=== PATIENT | male | born 1940 | race Caucasian/White ===

== ENCOUNTER → 2023-08-03 10:24 | Outpatient (REF) | payer MEDICARE, SELFPAY | LOC: RCS 10:24 | PROVIDERS: ATTENDING PHYSICIAN Student in an Organized Health Care Education/Training Program; FAMILY PHYSICIAN Internal Medicine | DX: Z86.73 Personal history of transient ischemic attack (TIA), and cerebral infarction without residual deficits (principal) | CPT/HCPCS: 93225; 93226 ==

== ENCOUNTER → 2023-11-02 12:44 | Outpatient (REF) | payer MEDICARE, SELFPAY ==
[2023-11-02 17:13] LABS: ALT (SGPT) 27 U/L (0-50); AST (SGOT) 25 U/L (17-59); Alkaline Phosphatase 72 U/L (38-126); Blood Urea Nitrogen 16 mg/dl (9-20); Calcium 10.3 mg/dl (8.4-10.2); Carbon Dioxide 27 mmol/L (22-30); Chloride 104 mmol/L (98-107); Glucose 106 mg/dl (70-99); HDL Cholesterol 55 mg/dl; LDL Cholesterol, Calculated 41 mg/dl; Potassium 4.7 mmol/L (3.5-5.1); Sodium 139 mmol/L (135-145); Total Bilirubin 0.8 mg/dl (0.2-1.3); Total Cholesterol 116 mg/dl (50-199); Total Protein 6.7 g/dl (6.3-8.2); Triglyceride 104 mg/dl (10-149); Very Low Density Lipoprotein 20 mg/dl (0-30); eGFR 53.84
[2023-11-02 17:28] LABS: Microalbumin, Random Urine 13.7 mg/dl (0.6-1.7); Microalbumin/creatinine Ratio 127.4 mg/g
[2023-11-03 13:14] LABS: Glycohemoglobin (HgbA1c) 6.8 % (4.0-5.6)
== END ==
LOC: HWLAB 12:44
PROVIDERS: ATTENDING PHYSICIAN Internal Medicine
DX: E11.9 Type 2 diabetes mellitus without complications (principal); E78.5 Hyperlipidemia, unspecified
CPT/HCPCS: 36415; 80053; 80061; 82043; 82570; 83036

== ENCOUNTER 2023-11-30 15:01 | Inpatient (IN) | payer MEDICARE, SELFPAY ==
[2023-11-28] VITALS (10 sets, daily range): BP systolic 135–184; BP diastolic 65–105; BMI 26.8; BMI 26.4
[2023-11-28 16:52] LABS: % Basophils 0.4 % (0-2); % Eosinophils 0.3 % (0-6); % Immature Granulocytes 0.4 % (0-0.5); % Lymphocytes 6.6 % (20.5-51.1); % Monocytes 6.1 % (1.7-9.3); % Neutrophils 86.2 % (42.2-75.2); Absolute Basophils 0.1 10^3/uL (0-0.2); Absolute Immature Granulocytes 0.1 10^3/uL (0-0.05); Absolute Lymphocytes 0.8 10^3/uL (1.2-3.4); Absolute Monocytes 0.8 10^3/uL (0.1-0.6); Absolute Neutrophils 10.9 10^3/uL (1.4-6.5); Hematocrit 42.4 % (39.0-52.0); Hemoglobin 13.8 g/dL (13.0-18.0); Mean Corp Hgb Conc. 32.5 g/dL (33.0-37.0); Mean Corpuscular Hgb 31.5 pg (27.0-31.0); Mean Corpuscular Volume 96.8 fL (80.0-94.0); Mean Platelet Volume 11.4 fL (7.4-10.4); Nucleated Red Blood Cells % 0 % (-); Platelet Count 151 10^3/uL (130-400); Red Blood Cell Count 4.38 10^6/uL (4.70-6.10); Red Cell Dist. Width 12.8 % (11.5-14.5); White Blood Cell Count 12.7 10^3/uL (4.8-10.8)
[2023-11-28 17:05] LABS: ALT (SGPT) 22 U/L (0-50); AST (SGOT) 21 U/L (17-59); Albumin 4.2 g/dl (3.5-5.0); Alkaline Phosphatase 77 U/L (38-126); Blood Urea Nitrogen 17 mg/dl (9-20); Calcium 10.3 mg/dl (8.4-10.2); Carbon Dioxide 27 mmol/L (22-30); Chloride 105 mmol/L (98-107); Glucose 190 mg/dl (70-99); Potassium 5.3 mmol/L (3.5-5.1); Sodium 137 mmol/L (135-145); Total Bilirubin 1.3 mg/dl (0.2-1.3); Total Protein 6.8 g/dl (6.3-8.2); eGFR 53.84
--- NOTE | 2023-11-28 17:22 | ED.GENMED ---
History of Present Illness
General
Chief Complaint: Dizziness
Time Seen by Provider: 11/28/23 17:36
History of Present Illness
History of Present Illness:
83-year-old male with history of CAD status post CABG and stenting, hypertension, hyperlipidemia presenting to the emergency department after a syncopal episode. Patient reports this morning, he went to go get the mail, has a vague memory of the
event, however reports that he started to feel dizzy and passed out. To get himself up and got onto the couch. He has no recollection for the next 4 hours. His found him on the couch, called the neighbor because he seemed very quiet, not
like himself. Patient now reports that he is feeling generally weak, however denies focal sensory deficits to his extremities. He denies headache or visual changes. He denies chest pain or difficulty breathing. He denies ever having an episode
like this in the past. He did not eat breakfast this morning, however did eat dinner last night and was in his usual state of health last evening. He denies abdominal pain or GI symptoms. He denies additional acute medical complaints
Past History
Past History
ED Past Medical History: CAD and Valvular disease
ED Past Surgical History: Cardiac
Social History
Tobacco: Non-smoker
Alcohol: Occasional
Drug: None
Personal:
Living: with family
Employment: Retired
Family History
Family History: Other (Noncontributory)
Phy Exam
Physical Exam
Physical Exam:
GENERAL: Alert , in no apparent distress
EYE: pupils equal and reactive
HEAD: Abrasion to the chin with small laceration to the inside of upper lip
NECK: Supple, no significant adenopathy.
ENT: o/p clr, mmm.
CARDIAC: Regular rate and rhythm .
LUNGS: Clear breath sounds bilaterally, no acute respiratory distress, no wheezes/rales/rhonchi
ABDOMEN: Soft, without focal tenderness, no r/g, no cvat
NEUROLOGICAL: Alert and oriented, no focal neuro deficits
SKIN: Warm and dry, skin intact.
MUSCULOSKELETAL: No edema, well perfused. Abrasion to the right knee and right elbow with range of motion and
PSYCH: Normal and appropriate interaction.
Course
Orders/Labs/Results
Orders:
Orders
11/28/23 16:23
Electrocardiogram (*1) Urgent
Reason for Study: Vertigo / Dizzy
Head wo Contrast CT [CT Head W/o Iv Contrast] Urgent
Comment:
Reason For Exam: fall with head strike
EKG- Treatment ONCE
11/28/23 16:30
Complete Blood Count/With Diff Urgent
Comprehensive Metabolic Panel Urgent
11/28/23 16:58
ECG [Electrocardiogram (*1)] Urgent
Reason for Study: Vertigo / Dizzy
EKG- Treatment ONCE
11/28/23 17:25
Troponin I Urgent
11/28/23 18:03
CT Cervical Spine W/o Iv Contr Urgent
Reason For Exam: fall
11/28/23 18:04
CR Chest Single View Urgent
Reason For Exam: syncope
Abnormal Lab Results
11/28/23
16:30
WBC 12.7 H 10^3/uL
(4.8-10.8)
RBC 4.38 L 10^6/uL
(4.70-6.10)
MCV 96.8 H fL
(80.0-94.0)
MCH 31.5 H pg
(27.0-31.0)
MCHC 32.5 L g/dL
(33.0-37.0)
MPV 11.4 H fL
(7.4-10.4)
Abs Immat Gran (auto) 0.1 H 10^3/uL
(0-0.05)
Absolute Neuts (auto) 10.9 H 10^3/uL
(1.4-6.5)
Absolute Lymphs (auto) 0.8 L 10^3/uL
(1.2-3.4)
Absolute Monos (auto) 0.8 H 10^3/uL
(0.1-0.6)
Neutrophils % 86.2 H %
(42.2-75.2)
Lymphocytes % 6.6 L %
(20.5-51.1)
Potassium 5.3 H mmol/L
(3.5-5.1)
Glucose 190 H mg/dl
(70-99)
Calcium 10.3 H mg/dl
(8.4-10.2)
11/28/23 16:30
11/28/23 16:30
Vital Signs
Initial and Last Documented VS:
Initial Vital Signs
Temp Pulse Resp BP Pulse Ox
98.5 F 75 18 159/82 99
11/28/23 16:19 11/28/23 16:19 11/28/23 16:19 11/28/23 16:19 11/28/23 16:19
Last Documented Vital Signs
Temp Pulse Resp BP Pulse Ox
98.5 F 63 20 168/65 96
11/28/23 16:19 11/28/23 17:30 11/28/23 17:30 11/28/23 17:15 11/28/23 17:30
MDM/Problems Addressed
MDM/Problems Addressed:
83-year-old male with history of CAD status post CABG presenting after a syncopal episode with volume loss. Vital signs are significant for hypertension
On exam, patient is well-appearing, awake, alert. There are signs of head trauma, otherwise no focal neurologic deficits. Concerning story patient syncopal episode. He does note some possible dizziness prior to episode, did not eat breakfast this
morning, possible vasovagal quality. Given cardiac history, EKG obtained, nonischemic, no arrhythmia. Unclear etiology of patient's memory issue, with no recollection for the last 4 hours preceding hospital visit. No focal neurologic deficits,
plan for CT brain imaging. Minimal tenderness to the cervical spine. Given unclear details of fall, will check cervical spine imaging. Plan for laboratory analysis and electrolyte panel. No significant signs of additional trauma to
extremities/chest/abdomen/pelvis
19:40 -patient's labs relatively unremarkable. CT brain without acute intracranial abnormality. CT cervical spine shows multilevel disc abnormalities with mention of moderate cord compression. Patient without any focal neurologic deficits or
concern for surgical emergency. Patient notes that he has had neck pain ongoing for months. No midline tenderness without concern for acute traumatic injury. Again feel patient warrants admission for cardiac monitoring and cardiac consultation
for sudden syncopal episode with following amnesia, possible neurology consultation as well.
*EKG
Interpreted by ED Provider?: Yes
EKG Intrepretation Date: 11/28/23
EKG Intrepretation Time: 19:09
Interpretation: normal
Comparison EKG: no changes (04/08/19)
Heart Rate: 64
Rate: normal
Rhythm: sinus
Wallace: normal axis
Interval: other (WA 228)
QRS Pattern: normal QRS
Ischemia: no ischemia
*Critical Care Note
Total Time (30-74mins, 75-104mins- exclusive of procedures): Not Applicable
ED Attending Note
-
Portions of this chart may have been created with voice recognition software.� Occasional wrong word or��sound alike� substitutions may have occurred due to the inherent limitations of voice recognition software.
Discharge Plan
Departure
Prescriptions:
No Action
atorvastatin 10 MG tablet
10 mg PO QPM
Fish Oil 1 CAP capsule
1 cap PO DAILY
losartan 50 MG tablet
50 mg PO DAILY
metformin 500 mg Tablet
500 mg PO DAILY
Metamucil Packet
1 packet PO BID
ascorbic acid (vitamin C) [Vitamin C] 500 mg Tablet
500 mg PO DAILY
metformin 1,000 mg Tablet
1,000 mg PO QPM
metoprolol succinate 25 mg Tablet Extended Release 24 Hr
25 mg PO DAILY
magnesium oxide 250 mg magnesium Tablet
250 mg PO DAILY
cholecalciferol (vitamin D3) [Vitamin D3] 50 mcg (2,000 unit) Capsule
50 mcg PO DAILY
vitamin B complex [B Complete] Tablet
1 tab PO DAILY
Referrals:
Dalia Denny MD [Family Provider] -
Interventions
Interventions:
*Risk Screen - Suicide Last Done: 11/28/23 16:21
*General Assessment Last Done: 11/28/23 16:21
*Neglect/Abuse Screening Last Done: 11/28/23 16:21
ED- Fall Risk Assessment Last Done: 11/28/23 17:30
ED- Cardiac Assessment Last Done: 11/28/23 17:30
ED-Musculoskeletal Assessment Last Done: 11/28/23 17:30
ED- Neurological Assessment Last Done: 11/28/23 17:30
ED-Skin Assessment Last Done: 11/28/23 17:30
Discharge Date and Time
Print Language: LAO
[2023-11-28 17:59] LABS: Troponin I < 0.012 ng/ml
--- NOTE | 2023-11-28 21:16 | HPS.HSE ---
Family Physician
-
Family Physician: Dalia Denny
Chief Complaint
-
Fall / Syncope
History of Present Illness
Patient is an 83y M with PMH significant for ASCVD, AVR and DM-II who presents to ED complaining of fall / syncope at home. Patient admits that his recall of the days events is unclear. He states that he was walking out to get the mail this AM
around 10 AM. He states that he 'turned around too fast' and he fell. He states that he did feel 'dizzy' prior to the fall. He is not sure whether or not he lost consciousness. He was able - with some difficulty - to get back into the house. He
fell asleep on the couch until his came downstairs to find him some time later. A neighbor was called for assistance and patient was brought to the ED for further evaluation and treatment.
He complains of some facial discomfort, R elbow discomfort and L hand discomfort following his fall.
He denies any chest pain, dyspnea, N/V, etc.
He denies any recent illness, changes in medications, etc.
Note: patient had a basal cell cancer excised from his R forehead about 5 days ago.
Medical History
Past Medical History
Past Medical History: Reports Other
Additional Past Medical History:
ASCVD
Hypertension
Aortic Stenosis
Non-Melanoma Skin Cancer
Prostate Cancer
DM-II
Post-Procedural A-Fib
Past Surgical History: Reports Other
Additional Past Surgical History:
PTCA with Stent
CABG x 3
Bovine AVR
TURP
Skin Cancer Excisions
Social History
Tobacco: Former Smoker (Quit smoking in 1989. Approx 30 pack years total use.)
Alcohol: Occasional (Very rare.)
Drug: None
Family History
Family History: Not pertinent
Allergies / Home Medications
Allergies reflects when Allergies were last updated in [facility].
Home Medications with original date entered in [facility]
Allergy/Medication List:
Allergies
Allergy/AdvReac Type Severity Reaction Status Date / Time
acetaminophen [From Percocet] AdvReac N & V Verified 11/28/23 16:18
oxycodone HCl [From Percocet] AdvReac N & V Verified 11/28/23 16:18
Home Medications
atorvastatin 10 mg tablet 10 mg PO QPM 05/03/09
omega-3 fatty acids-fish oil 300 mg-500 mg capsule (Fish Oil) 1 cap PO DAILY 05/03/09
losartan 50 mg tablet 50 mg PO DAILY 10/25/13
ascorbic acid (vitamin C) 500 mg tablet (Vitamin C) 500 mg PO DAILY 11/28/23
cholecalciferol (vitamin D3) 50 mcg (2,000 unit) capsule (Vitamin D3) 50 mcg PO DAILY 11/28/23
magnesium oxide 250 mg PO DAILY 11/28/23
metformin 1,000 mg tablet 1,000 mg PO QPM 11/28/23
metformin 500 mg tablet 500 mg PO DAILY 11/28/23
metoprolol succinate 25 mg tablet,extended release 24 hr 25 mg PO DAILY 11/28/23
psyllium 1 packet PO BID 11/28/23
vitamin B complex 1 tab PO DAILY 11/28/23
Review of Systems
-
History Source: Patient
A 12 point ROS was completed and negative except as noted: Yes
Constitutional: Reports Fatigue; Denies Fever or Chills
EENT: Reports Other (Mouth / face pain.)
Respiratory: Denies Cough or Trouble Breathing
Cardiac: Denies Chest Pain or Palpitations
Abdomen/GI: Denies Abdominal Pain, Nausea, Vomiting or Diarrhea
: Denies Dysuria, Frequency or Flank Pain
Musculoskeletal: Reports Joint Pain; Denies Edema
Neurological: Reports Headache; Denies Dizzy, Weakness or Numbness
Psych: Denies Depression or Anxiety
Physical Exam
Vital Signs
Vital Signs
Temp Pulse Resp BP Pulse Ox
98.5 F 63 20 146/105 98
11/28/23 16:19 11/28/23 20:45 11/28/23 20:45 11/28/23 20:00 11/28/23 20:45
Physical Exam
General: Other (83y M in no acute distress.)
HEENT: Moist mucous membranes and Other (Sutures R forehead from surgery 5 days ago. No bleeding. Abrasion R mouth / lips without active bleeding. No evident dental injury.)
Respiratory: Clear; No Wheezes, Rales or Rhonchi
Cardiac: S1/S2 (Prominent S2 ), Regular Rhythm and Murmur (II/ HORACIO)
GI: Soft, Non Tender, Non Distended and Normal Bowel Sounds
Musculoskeletal: No Clubbing, No Cyanosis and No Edema
Skin: Other (Abrasions over R elbow and L palm without active bleeding.)
Neuro: AO x 3 and Nonfocal/grossly intact
Laboratory Results
-
11/28/23 16:30
11/28/23 16:30
Laboratory Results
Total Bilirubin 1.3 mg/dl (0.2-1.3) 11/28/23 16:30
AST 21 U/L (17-59) 11/28/23 16:30
ALT 22 U/L (0-50) 11/28/23 16:30
Alkaline Phosphatase 77 U/L (38-126) 11/28/23 16:30
Troponin I < 0.012 ng/ml 11/28/23 17:25
Impression/Plan
-
A/P: Patient is an 83y M with PMH significant for ASCVD, valvular heart disease and DM-II who presents to ED for evaluation s/p fall / syncope earlier today.
Fall at Home
Syncope
- Observe overnight for further evaluation and treatment.
- Suspect syncope did occur based on patient's report / memory impairment.
- Monitor on tele overnight.
- IVFs overnight with mild hyperkalemia and hypercalcemia suggesting degree of hypovolemia.
- Follow for any new / recurrent symptoms.
- PT / OT evaluations in the AM.
ASCVD
- Stable. Continue current CV med regimen.
- No current chest pain, palpitations, etc.
DM-II
- Stable. Hold metformin acutely.
- Follow glucose and cover with SSI as needed.
- Update A1C.
Skin Cancer
- Sutures over R forehead are from skin cancer excision done 5 days ago.
- Some mild localized ecchymosis - no active bleeding, etc.
- Follow-up with Dermatology after discharge.
DVT Prophylaxis: SCDs
Code Status: Full
[2023-11-28 22:19] LABS: Glucose - Point of Care 132 mg/dl (70-99)
[2023-11-28] MEDS: TYLENOL 650 MG PO (22:23)
[2023-11-28] MEDS: NSS 1000 IV (22:45)
[2023-11-29] VITALS (9 sets, daily range): BP systolic 137–170; BP diastolic 61–115; PULSE 66–83; O2SAT 94; BMI 26.5
[2023-11-29 00:02] LABS: Troponin I 0.019 ng/ml
[2023-11-29 00:20] LABS: TSH Reflex To Free T4 0.93 uIU/ml (0.47-4.68)
[2023-11-29 04:27] LABS: Hematocrit 35.1 % (39.0-52.0); Hemoglobin 12.4 g/dL (13.0-18.0); Mean Corp Hgb Conc. 35.3 g/dL (33.0-37.0); Mean Corpuscular Hgb 32.5 pg (27.0-31.0); Mean Corpuscular Volume 92.1 fL (80.0-94.0); Mean Platelet Volume 10.9 fL (7.4-10.4); Platelet Count 138 10^3/uL (130-400); Red Blood Cell Count 3.81 10^6/uL (4.70-6.10); Red Cell Dist. Width 12.8 % (11.5-14.5); White Blood Cell Count 9.4 10^3/uL (4.8-10.8)
[2023-11-29 04:42] LABS: Blood Urea Nitrogen 16 mg/dl (9-20); Calcium 9.5 mg/dl (8.4-10.2); Carbon Dioxide 23 mmol/L (22-30); Chloride 109 mmol/L (98-107); Estimated Creatinine Clearance 46 ml/min; Glucose 112 mg/dl (70-99); Potassium 4.2 mmol/L (3.5-5.1); Sodium 137 mmol/L (135-145); eGFR 59.26
[2023-11-29 04:51] LABS: Troponin I 0.018 ng/ml
[2023-11-29] MEDS: NSS 1000 IV ×2 (06:27→14:59)
[2023-11-29] MEDS: TYLENOL 650 MG PO (06:40)
[2023-11-29] MEDS: TOPROL XL 25 MG PO (07:36)
[2023-11-29] MEDS: COZAAR 50 MG PO (07:37)
[2023-11-29 07:41] LABS: Glucose - Point of Care 119 mg/dl (70-99)
[2023-11-29] MEDS: NOVOLOG FLEXPEN-LOW RESISTANCE SC ×2 (07:42→17:11)
--- NOTE | 2023-11-29 09:49 | CON.NEURO4 ---
Addendum entered and electronically signed by Yo Lora MD 11/29/23 12:46:
Studies reviewed.
I have personally examined the patient. I reviewed and agree with the SUPERVISOR GENERAL's Note.
My addenda:
Awake, alert, interactive. No acute distress.
Speech intact.
Follows 2-step requests w/o difficulty. No tremor.
Extra-ocular movements grossly intact.
Facial movements full and symmetric. Hearing intact to normal conversational volume.
Normal UE movements bilaterally.
Neck: full ROM.
Chest: no dyspnea
Heart: no JVD
Ext: (-) Clubbing, (-) Cyanosis, (-) Edema
IMPRESSIONS/RECOMMENDATIONS:
Abrupt onset of syncope
Most likely due to orthostasis
Orthostatic BPs
follow neuropsychological testing as outpatient
restart Clopidogrel
D/W patient
Will continue to follow as outpatient.
Original Note:
Documented by User: Virgie Morrison NP 11/29/23 12:14
Consultation - Neurology 4
-
CONSULTING PHYSICIAN: Yo Lora MD
REFERRING PHYSICIAN: Hospitalists/Dr. Lea
DICTATED BY: AC Pruett
DATE/TIME OF REQUEST: 11/29/23
DATE/TIME OF CONSULTATION: 11/29/23
Reason for Consultation: Syncope and confusion
History of Present Illness:
This is an 83-year-old right-handed male who has presented to the hospital with report of syncope and memory loss. Patient has been evaluated by our outpatient Neurology service Dr. Grimaldo once in June 2023 due to subacute left cerebellar
ischemic stroke demonstrated on MRI brain imaging obtained as an outpatient in March 2023.
From previous evaluation by Dr. Grimaldo on 07/14/23:
'Patient is an 83 year old right handed man.He had had an instance of not recognizing his PCP at the [place] station. This along with concerns for his cognition led to getting a brain MRI that showed subacute stroke on the left cerebellum, was started
on DAPT and is currently on aspirin and clopidogrel. No bleeding issue.�Reports intermittent dizziness.�Has had some incoordination and problems grasping in both hands over past few years, no paresthesia or pains of the wrist.�Reports having had
diabetes and hypertension for a long time. To his knowledge hasn't had nephropathy, retinopathy or neuropathy.
Infarcts don't look cardioembolic but still would get some cardiac rhythm monitoring, it appears had had post operative atrial fibrillation years ago without recurrence, sees cardiology regularly. He reports has had recent TTE. Would recommend 24
hours of heart monitoring. Would stop the aspirin (come off DAPT) and continue on Clopidogrel. Continue the current regimen for cholesterol and hypertension.'
Patient has poor short term and fci recollection and does not remember his encounter with Dr. Grimaldo. Yesterday (11/28/23), patient reports feeling in his usual state when he walked to his mailbox to get the mail. He reports turning his head
quickly, then suddenly feeling dizzy and losing consciousness. He remembers waking up on the ground and making his way inside to take a nap on the couch for a few hours. He cannot recall how he ended up at the hospital and couldn't report the events
of the previous 4 hours when he arrived in the ER. CT head was obtained on arrival and is negative for any acute findings. Orthostatic vital signs are significantly positive here, with systolic dropping from 170 to 138 with sitting to standing.
Currently, patient reports feeling at his baseline. He denies any headache, dizziness, vision changes, speech/swallow difficulty, numbness, weakness, chest pain, palpitations, and shortness of breath. He reports feeling dizzy at times in the past
associated with position change or turning his head quickly but he denies any previous episodes of syncope. He reports that he is no longer taking Plavix, he has no recollection of when he stopped this or why. He had on instance of paroxysmal Afib
in the past following cardiac surgery, he has never been on anticoagulation. His children have been managing the finances for several years. He lives independently with his and still drives.
Past Medical History: Left cerebellar ischemic stroke, chronic left thalamic lacunar infarcts, cognitive impairment, HTN, HLD, CAD, NIDDM, paroxysmal Afib x1, basal cell carcinoma, prostate cancer, renal calculi, vertigo
Surgical History: AVR, CABG, TURP, MOHS, cataract removal
Family History: Sister- dementia.
Social History: Former smoker. Occasional alcohol. Denies illicit drug use.
Allergies: Percocet.
Home Medications: See below.
Review of Symptoms:
Patient denies any fever, headache, chest pain, shortness of breath, GI or symptoms.
�Per the HPI.�All systems are reviewed negative except above.
�
Physical Exam:
The patient is afebrile, abdomen is nondistended, breathing is unlabored, skin is warm and dry, scabbing on right upper lip and right forehead.
NIH Stroke Scale:
I performed the NIH stroke scale on the patient on 11/29/23 at 0950. The patient scored 0 points on the NIH stroke scale assessment, which were assigned as follows: See below.
Neurologic Examination:
The patient is awake, alert and oriented x 3. 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 He is able to follow one-step commands and answer some questions appropriately. Mild difficulty following two-step commands. There is no aphasia or
dysarthria. On cranial nerve assessment, pupils are 3 mm bilateral, round and reactive to light and accommodation. Visual parsons are full. Extraocular movements are intact. Facial sensations are intact and bilaterally symmetrical, there is no facial
asymmetry. Hearing is intact bilaterally to normal conversation volume. Tongue palate and uvula are midline. Sternocleidomastoid strengths are full bilaterally. Motor strengths are 5/5 bilateral upper and lower extremities on medical research
[place] scale. There is no drift or involuntary movement noted. There was no extinction noted on double simultaneous stimulation. Coordination is intact by finger to nose bilaterally. RUE satellites around LUE slightly.
Lab Results: See below.
Neuro Imaging:
1. CT Head 11/28/23: No CT evidence for acute intracranial hemorrhage or scalp soft tissue hematoma. Moderate diffuse cerebral and cerebellar volume loss. Severe white matter leukoaraiosis in the frontal and parietal lobes. Small chronic transcortical
infarct in the posterior right parietal lobe. Small chronic infarct in the left cerebellar hemisphere.
Differentials for the patient's presentation include:
1. Orthostatic hypotension likely producing syncope.
2. Underlying cognitive impairment; memory lapse likely due to orthostasis combined with underlying cognitive impairment.
3. History of ischemic stroke.
4. One episode of paroxysmal Afib following cardiac surgery in the past.
Recommendations:
-Would initiate Plavix 75mg daily and maintain this indefinitely for stroke prevention.
-Patient needs outpatient Neuropsychological testing for further evaluation of cognition.
-Goal normotension.
-ROMMEL stockings, abdominal binder, increased fluid intake, and slow position changes for orthostasis.
-Patient may benefit from outpatient cognitive therapy.
-DVT prophylaxis.
-Follow-up with Neurology as an outpatient for cognitive changes and hx of stroke.
Discussed patient care with: Dr. Lora, the patient
Vital Signs and Labs
-
Vital Signs and Labs:
Vital Signs
Temp Pulse Resp BP Pulse Ox
97.7 F 64 16 137/69 95
11/29/23 07:00 11/29/23 07:00 11/29/23 07:00 11/29/23 07:00 11/29/23 07:00
Lab Results
11/29/23 04:10
11/29/23 04:10
Sodium 137 mmol/L (135-145) 11/29/23 04:10
Potassium 4.2 mmol/L (3.5-5.1) 11/29/23 04:10
BUN 16 mg/dl (9-20) 11/29/23 04:10
Glucose 112 mg/dl (70-99) H 11/29/23 04:10
Calcium 9.5 mg/dl (8.4-10.2) 11/29/23 04:10
Medications
-
Active Medications
Generic Name Dose Route Start Last Admin
Trade Name Freq PRN Reason Stop Dose Admin
Acetaminophen 650 mg 11/28/23 21:56 11/29/23 06:40
Acetaminophen 325 Mg Tablet PO 12/26/23 21:55 650 mg
Q4HPRN PRN Administration
Mild Pain / Temp > 101
Atorvastatin Calcium 10 mg 11/29/23 18:00
Atorvastatin (Lipitor) 10 Mg Tablet PO 12/27/23 17:59
QPM NIDIA
Dextrose 12.5 grams 11/28/23 21:56
Dextrose 50% (0.5 Grams/Ml) 50 Ml Syringe IV 12/26/23 21:55
[id number] PRN
hypoglycemia
Protocol
Glucagon 1 mg 11/28/23 21:56
Glucagon 1 Mg Vial IM 12/26/23 21:55
PRN PRN
hypoglycemia
Protocol
Sodium Chloride 1,000 mls @ 125 mls/hr 11/28/23 21:56 11/29/23 06:27
Nss IV 1,000 mls
.Q8H NIDIA Administration
Insulin Aspart 0 units 11/29/23 07:30 11/29/23 07:42
Insulin Aspart Low Resistance 300 Units/3 Ml Pen.Injctr SC 12/27/23 07:29 Not Given
AC NIDIA
Protocol
Losartan Potassium 50 mg 11/29/23 08:00 11/29/23 07:37
Losartan 50 Mg Tablet PO 12/27/23 07:59 50 mg
DAILY NIDIA Administration
Metoprolol Succinate 25 mg 11/29/23 08:00 11/29/23 07:36
Metoprolol 25 Mg Extended Release Tablet PO 12/27/23 07:59 25 mg
DAILY NIDIA Administration
Sodium Chloride 0 flush 11/28/23 23:00
Sodium Chloride 0.9% (Flush) Syringe IV 12/26/23 22:59
PER PROTOCOL NIDIA
Home Medications
�Medication �Instructions �Recorded
atorvastatin 10 mg tablet 10 mg PO QPM 05/03/09
omega-3 fatty acids-fish oil 300 1 cap PO DAILY 05/03/09
mg-500 mg capsule (Fish Oil)
losartan 50 mg tablet 50 mg PO DAILY 10/25/13
ascorbic acid (vitamin C) 500 mg 500 mg PO DAILY 11/28/23
tablet (Vitamin C)
cholecalciferol (vitamin D3) 50 50 mcg PO DAILY 11/28/23
mcg (2,000 unit) capsule (Vitamin
D3)
magnesium oxide 250 mg PO DAILY 11/28/23
metformin 1,000 mg tablet 1,000 mg PO QPM 11/28/23
metformin 500 mg tablet 500 mg PO DAILY 11/28/23
metoprolol succinate 25 mg 25 mg PO DAILY 11/28/23
tablet,extended release 24 hr
psyllium 1 packet PO BID 11/28/23
vitamin B complex 1 tab PO DAILY 11/28/23
NIH Stroke Score
Subsequent NIH Scale
Date of Subsequent NIH Scale: 11/29/23
Time of Subsequent NIH Scale: 09:50
NIH Stroke Score
Level of Consciousness: 0 - Alert
LOC Questions: 0-Answers both correctly
LOC Commands: 0-Performs both correctly
Best Horizontal Gaze: 0-Normal
Visual Parsons: 0=Normal, no visual loss
Facial Palsy: 0=Normal, symmetrical
Motor - Right Arm: 0=No drift 10 seconds
Motor - Left Arm: 0=No drift 10 seconds
Motor - Right Le-No drift 5 seconds
Motor - Left Le-No drift 5 seconds
Limb Ataxia: 0-Absent
Sensation: 0-Normal
Best Language: 0-No aphasia
Dysarthria: 0-Normal
Extinction and Inattention: 0-No abnormality
Total Score:: 0

Documented by User: Yo Lora MD 11/29/23 12:35
NIH Stroke Score
NIH Stroke Score
Total Score:: 0
--- NOTE | 2023-11-29 11:58 | W.PN.HOSP.TC ---
Today's Communication/Plan
-
ECHO
Further neuro work up if needed per Neurology
PT OT
Will clarify with the if patient has A-fib and if so why he is not on anticoagulation.
Assessment / Plan
Assessment / Plan
83-year-old man presented with syncope. 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 He seemed to have gotten to the house and taken a nap. found him later. He stated that he did put
the mail on the kitchen table.
Right forehead-sutures from dermatological surgery
Abrasion on the face just above the upper lip on the right side
Cardiovascular system S1-S2 appreciated
Chest clear to auscultation
Abdomen soft and nontender
Neuroexam is nonfocal
#Syncope with fall
Memory impairment with this event
Check orthostatic vital signs-orthostasis noted
IV fluids given
Will request neurology evaluation
Monitor on telemetry
Trop negative
Check ECHO
PT OT
# History of TIA 2008
# Paroxysmal atrial fibrillation/flutter-not on anticoagulation as outpatient. On beta-blockers. Pt doesn't know why he is not on AC
# Hyperlipidemia-continue atorvastatin
# Coronary disease with cardiac stents and bypass surgery
# Hypertension-on losartan 50 mg and metoprolol 25 mg daily as outpatient
# History of aortic valve replacement
# Diabetes-type II
On metformin as outpatient-continue 500 mg daily and 1000 mg at bedtime
Sliding scale coverage and Accu-Cheks
# History of skin cancer with excision 5 days prior to arrival
Follow-up with dermatology after discharge
# History of TURP for prostate cancer
# Nephrolithiasis
# DVT prophylaxis-SCDs
# Full code
Discussed with nursing at bedside
I was not able to reach the patient's on the phone to get more history
Anticipated Discharge: Within 24 hours
Subjective/Interval History
-
Date of Service: November 29, 2023
Objective Data
-
Labs:
Laboratory Results
11/29/23
04:10
WBC 9.4
Hgb 12.4 L
Hct 35.1 L
Plt Count 138
Sodium 137
Potassium 4.2
Chloride 109 H
Carbon Dioxide 23
BUN 16
Creatinine 1.2
Glucose 112 H
Calcium 9.5
Vital Signs:
Vital Signs
Temp Pulse Resp BP Pulse Ox
97.9 F 64 18 149/67 94
11/29/23 11:00 11/29/23 11:00 11/29/23 11:00 11/29/23 11:00 11/29/23 11:00
--- NOTE | 2023-11-29 12:15 | W.PN.HOSP.TC ---
Addendum entered and electronically signed by Meño Lea MD 11/29/23 15:39:
Spoke to Son García
Updated
He says pt should be on Plavix.
Patient's solid waste facility supervisor is Dr. Asif Sanz-[phone].
Will call to get information.
Left message for call back
total time spent over 1 hour
Addendum entered and electronically signed by Meño Lea MD 11/29/23 14:42:
Spoke to Friend . Got son Vijay Espana's number [phone].
Patient's friend has known him for the past 40 years and he is a pharmacist. Updated regarding patient's condition
Original Note:
Today's Communication/Plan
-
ECHO
Orthostasis
Neuro eval
PT OT
Assessment / Plan
Assessment / Plan
83-year-old man presented with syncope. 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 He seemed to have gotten to the house and taken a nap. found him later. He stated that he did put
the mail on the kitchen table.
Right forehead-sutures from dermatological surgery
Abrasion on the face just above the upper lip on the right side
Cardiovascular system S1-S2 appreciated
Chest clear to auscultation
Abdomen soft and nontender
Neuro exam is nonfocal
#Syncope with fall
Memory impairment with this event
Check orthostatic vital signs-orthostasis noted
IV fluids given
Will request neurology evaluation
Monitor on telemetry
Trop negative
Check ECHO
PT OT
# History of TIA 2009
# Paroxysmal atrial fibrillation/flutter-not on anticoagulation as outpatient. On beta-blockers. Pt doesn't know why he is not on AC
# Hyperlipidemia-continue atorvastatin
# Coronary disease with cardiac stents and bypass surgery
# Hypertension-on losartan 50 mg and metoprolol 25 mg daily as outpatient
# History of aortic valve replacement
# Diabetes-type II
On metformin as outpatient-continue 500 mg daily and 1000 mg at bedtime
Sliding scale coverage and Accu-Cheks
# History of skin cancer with excision 5 days prior to arrival
Follow-up with dermatology after discharge
# History of TURP for prostate cancer
# Nephrolithiasis
# DVT prophylaxis-SCDs
# Full code
Discussed with nursing at bedside
I was not able to reach the patient's on the phone to get more history.
Anticipated Discharge: Within 24 hours
Subjective/Interval History
-
Date of Service: November 29, 2023
Objective Data
-
Labs:
Laboratory Results
11/29/23
04:10
WBC 9.4
Hgb 12.4 L
Hct 35.1 L
Plt Count 138
Sodium 137
Potassium 4.2
Chloride 109 H
Carbon Dioxide 23
BUN 16
Creatinine 1.2
Glucose 112 H
Calcium 9.5
Vital Signs:
Vital Signs
Temp Pulse Resp BP Pulse Ox
97.9 F 64 18 149/67 94
11/29/23 11:00 11/29/23 11:00 11/29/23 11:00 11/29/23 11:00 11/29/23 11:00
[2023-11-29 12:27] LABS: Vitamin B12 > 1000 pg/ml (239-931)
[2023-11-29 12:44] LABS: Glucose - Point of Care 201 mg/dl (70-99)
[2023-11-29] MEDS: NOVOLOG FLEXPEN-LOW RESISTANCE 2 UNITS SC (12:47)
[2023-11-29] MEDS: MAGNESIUM OXIDE 250 MG PO (12:48)
[2023-11-29] MEDS: PLAVIX 75 MG PO (16:15)
--- NOTE | 2023-11-29 16:23 | CM ---
Alert awake oriented patient who lives with his Silvana who lives in a 2 story home with 5 step to enter and 14 steps to bed and bathroom. He is independent in driving and in all activities of daily living.He uses a walker prn.He was offered VN
he declined need.Bird letter given explained Pt declined to sign BIRD letter.
No VN hx / No SNF history
Pharmacy [facility]
PCP DR Santos
PLAN Home Declined VN
[2023-11-29 16:53] LABS: Glucose - Point of Care 130 mg/dl (70-99)
--- NOTE | 2023-11-29 17:05 | W.PN.UPDATE ---
Update Note
Progress Note Update
Spoke to [facility] nurse practitioner Debra who works with Dr. Pablo. Patient was taken off of warfarin years ago because he was maintaining sinus rhythm and his risk for bleeding. From the ER notes patient was seen in September 2023 he was
on aspirin. He is not on Plavix for cardiac reasons. Patient's son stated to me that he was on Plavix . Unclear who has started the patient on Plavix if it is for neurological reasons. I will clarify with this with neurology tomorrow who
recommended to restart Plavix.
TME-likely secondary to underlying undiagnosed cognitive dysfunction and being in the hospital.
[2023-11-29] MEDS: RISPERDAL 0.25 MG PO (17:08)
[2023-11-29] MEDS: LIPITOR 10 MG PO (18:25)
[2023-11-29] MEDS: GLUCOPHAGE 1000 MG PO (18:25)
--- NOTE | 2023-11-29 19:32 | PTCARENOTE ---
1556 Pt becoming confuse. Pt aware . See MAR for medication ordered. Pt insisting on leaving the hospital. Pt reoriented to situation.
[2023-11-29] MEDS: METAMUCIL, KONSYL PO (20:15)
[2023-11-29] MEDS: ZYPREXA 5 MG IM (21:35)
--- NOTE | 2023-11-29 21:40 | PTCARENOTE ---
Patient confused, agitated, uncooperative. Attempting to hit staff. called, to help reorient patient, unsuccessful. Notified House ENROLLMENT MANAGEMENT DIRECTOR, orders received
[2023-11-29 21:53] LABS: Glucose - Point of Care 132 mg/dl (70-99)
[2023-11-30] VITALS (7 sets, daily range): BP systolic 132–164; BP diastolic 60–85; PULSE 73–76; O2SAT 95
[2023-11-30] MEDS: TYLENOL 650 MG PO (02:53)
--- NOTE | 2023-11-30 03:07 | W.PN.UPDATE ---
Addendum entered and electronically signed by AC Fitch 11/30/23 06:08:
Ordered IM Zyprexa with some relief.
Original Note:
Update Note
Progress Note Update
RN notified BIZTALK CONSULTANT, patient agitated and trying to call 911. IV Haldol and Risperdal was given earlier day time at 4 PM. stable VS, Patient was placed on restraints. Will order UA, Urine culture to rule out any UTI.
[2023-11-30 06:16] LABS: Urine Albumin 1+ (Neg - Trace); Urine Bilirubin Negative (Negative); Urine Character Clear (Clear); Urine Color Yellow; Urine Glucose Negative (Negative); Urine Ketone 1+ (Negative); Urine Leukocyte Negative (Negative); Urine Nitrite Negative (Negative); Urine Occult Blood 1+ (Negative); Urine Specific Gravity 1.015 (<1.030); Urine Urobilinogen Negative (Neg - 1+)
[2023-11-30 07:15] LABS: Urine Amorphous Seen
[2023-11-30 07:16] LABS: Urine Bacteria Few (Negative)
[2023-11-30 09:29] LABS: Glucose - Point of Care 114 mg/dl (70-99)
[2023-11-30] MEDS: NOVOLOG FLEXPEN-LOW RESISTANCE SC ×3 (09:35→17:19)
[2023-11-30] MEDS: VITAMIN D3 (cholecalciferol) 50 MCG PO (10:01)
[2023-11-30] MEDS: COZAAR 50 MG PO (10:01)
[2023-11-30] MEDS: MAGNESIUM OXIDE 250 MG PO (10:01)
[2023-11-30] MEDS: METAMUCIL, KONSYL 1 PACKET PO (10:01)
[2023-11-30] MEDS: GLUCOPHAGE 500 MG PO (10:02)
[2023-11-30] MEDS: PLAVIX 75 MG PO (10:02)
[2023-11-30] MEDS: TOPROL XL 25 MG PO (10:02)
--- NOTE | 2023-11-30 10:18 | W.PN.HOSP.TC ---
Today's Communication/Plan
-
Add AB
Son will be here this afternoon
Assessment / Plan
Assessment / Plan
83-year-old man presented with syncope. 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 He seemed to have gotten to the house and taken a nap. found him later. He stated that he did put
the mail on the kitchen table.
Right forehead-sutures from dermatological surgery
Abrasion on the face just above the upper lip on the right side
Cardiovascular system S1-S2 appreciated
Chest clear to auscultation
Abdomen soft and nontender
Neuro exam is nonfocal, answers questions appropriately but was confused overnight and agitated.
# TME with agitation overnight
Received Zyprexa
Patient does not want to meet with psychiatry even though he states that he feels anxious at times.
# Abnormal urine analysis. With TME will treat as a UTI with ceftriaxone. Await urine cultures
#Syncope with fall
Memory impairment with this event
Not orthostatic anymore
Neurology evaluation appreciated
Trop negative
Echo 11/29/2023-elevated normal size and function. Ejection fraction 60 to 65% stage II diastolic dysfunction. RV normal, aortic valve replacement, mild TR
PT OT
# History of TIA 2008
# Paroxysmal atrial fibrillation/flutter-not on anticoagulation as outpatient. On beta-blockers.
Follows up with Dr. Asif Pablo at [facility]. I spoke to his DINING ROOM HELPER yesterday. Patient has very low burden of atrial fibrillation with his age and risk of bleeding he was taken off of anticoagulation.
# Hyperlipidemia-continue atorvastatin
# Coronary disease with cardiac stents and bypass surgery-reportedly cardiology had the patient on aspirin in September but as per neurology he was switched to Plavix from my discussion with [facility] neurology.
# Hypertension-on losartan 50 mg and metoprolol 25 mg daily as outpatient
# History of aortic valve replacement
# Diabetes-type II
On metformin as outpatient-continue 500 mg daily and 1000 mg at bedtime
Sliding scale coverage and Accu-Cheks
# History of skin cancer with excision 5 days prior to arrival
Follow-up with dermatology after discharge
# History of TURP for prostate cancer
# Nephrolithiasis
# DVT prophylaxis-SCDs
# Full code
Discussed with nursing at bedside
Spoke to Dr. Asif Pablo's DINING ROOM HELPER yesterday
Discussed with patient's son Paresh 11/29/23 and 11/30/23
Discussed with son about PT OT recommendations. Patient's has dementia and never for the patient to go home. One of his sons is coming into town today and they want to stay with him and other son Paresh will come to town on Tuesday. They are
hoping to take patient home if possible.
Will have physical therapy discussed with patient's son when he gets here.
Also will see what neurology input is today.
I also discussed with son that urine cultures will not be back today.
Left a message for Dr.Elisa Denny.
time spent 45 min
Anticipated Discharge: Within 24 hours
Subjective/Interval History
-
Date of Service: November 30, 2023
Objective Data
-
Vital Signs:
Vital Signs
Temp Pulse Resp BP Pulse Ox
98.2 F 63 17 132/60 95
11/30/23 07:09 11/30/23 10:01 11/30/23 07:09 11/30/23 10:01 11/30/23 07:09
I&O
11/29/23 11/30/23 12/01/23
06:59 06:59 06:59
Intake Total 1810 / 1810
Output Total 400 / 400
Balance 1410 / 1410
--- NOTE | 2023-11-30 10:21 | W.PN.NEURO.1 ---
Today's Communication / Plan
-
Follow orthostatic BPs
Provide abdominal binder
neuropsychological testing as outpatient
restart Clopidogrel
Provide thiamine to ensure there is no deficiency
Neuro Assessment/Plan
Assessment
IMPRESSIONS/RECOMMENDATIONS:
Abrupt onset of syncope which is most likely secondary to orthostasis
Patient also has cognitive impairment evidenced by sundowning
Plan
Follow orthostatic BPs
Provide abdominal binder
neuropsychological testing as outpatient
restart Clopidogrel
Provide thiamine to ensure there is no deficiency
Will follow as outpatient
Subjective/Objective
Subjective Data
Date of Service: November 30, 2023
Objective Data
Vital Signs
Temp Pulse Resp BP Pulse Ox
36.8 C 63 17 132/60 95
11/30/23 07:09 11/30/23 10:01 11/30/23 07:09 11/30/23 10:01 11/30/23 07:09
Lab Results
11/29/23 04:10
11/29/23 04:10
Sodium 137 mmol/L (135-145) 11/29/23 04:10
Potassium 4.2 mmol/L (3.5-5.1) 11/29/23 04:10
BUN 16 mg/dl (9-20) 11/29/23 04:10
Glucose 112 mg/dl (70-99) H 11/29/23 04:10
Calcium 9.5 mg/dl (8.4-10.2) 11/29/23 04:10
Vitamin B12 > 1000 pg/ml (239-931) H 11/29/23 04:10
Patient Allergies
acetaminophen [From Percocet] Allergy (Verified 11/28/23 22:16)
N & V
oxycodone HCl [From Percocet] Allergy (Verified 11/28/23 22:16)
N & V
Past History
Past History
ED Past Medical History: CAD and Valvular disease
ED Past Surgical History: Cardiac
Social History
Tobacco: Non-smoker
Alcohol: Occasional
Drug: None
Personal:
Living: with family
Employment: Retired
Family History
Family History: Other (Noncontributory)
Medications
-
Medications:
Generic Name Dose Route Start Last Admin
Trade Name Freq PRN Reason Stop Dose Admin
Acetaminophen 650 mg 11/28/23 21:56 11/30/23 02:53
Acetaminophen 325 Mg Tablet PO 12/26/23 21:55 650 mg
Q4HPRN PRN Administration
Mild Pain / Temp > 101
Atorvastatin Calcium 10 mg 11/29/23 18:00 11/29/23 18:25
Atorvastatin (Lipitor) 10 Mg Tablet PO 12/27/23 17:59 10 mg
QPM NIDIA Administration
Ceftriaxone Sodium 1,000 mg 11/30/23 12:00
Ceftriaxone 1000 Mg / 10 Ml Vial IV
Q24H NIDIA
Cholecalciferol 50 mcg 11/30/23 08:00 11/30/23 10:01
Cholecalciferol (Vitamin D3) 50 Mcg Tablet (2,000 Units) PO 12/28/23 07:59 50 mcg
DAILY NIDIA Administration
Clopidogrel Bisulfate 75 mg 11/29/23 16:00 11/30/23 10:02
Clopidogrel 75 Mg Tablet PO 12/27/23 15:59 75 mg
DAILY NIDIA Administration
Dextrose 12.5 grams 11/28/23 21:56
Dextrose 50% (0.5 Grams/Ml) 50 Ml Syringe IV 12/26/23 21:55
[id number] PRN
hypoglycemia
Protocol
Glucagon 1 mg 11/28/23 21:56
Glucagon 1 Mg Vial IM 12/26/23 21:55
PRN PRN
hypoglycemia
Protocol
Insulin Aspart 0 units 11/29/23 07:30 11/30/23 09:35
Insulin Aspart Low Resistance 300 Units/3 Ml Pen.Injctr SC 12/27/23 07:29 Not Given
AC NIDIA
Protocol
Losartan Potassium 50 mg 11/29/23 08:00 11/30/23 10:01
Losartan 50 Mg Tablet PO 12/27/23 07:59 50 mg
DAILY NIDIA Administration
Magnesium Oxide 250 mg 11/29/23 12:30 11/30/23 10:01
Magnesium Oxide 500 Mg Tablet PO 12/27/23 12:29 250 mg
DAILY NIDIA Administration
Metformin HCl 500 mg 11/30/23 08:00 11/30/23 10:02
Metformin 500 Mg Regular Release Tablet PO 12/28/23 07:59 500 mg
DAILY NIDIA Administration
Metformin HCl 1,000 mg 11/29/23 18:00 11/29/23 18:25
Metformin 1000 Mg Regular Release Tablet PO 12/27/23 17:59 1,000 mg
QPM NIDIA Administration
Metoprolol Succinate 25 mg 11/29/23 08:00 11/30/23 10:02
Metoprolol 25 Mg Extended Release Tablet PO 12/27/23 07:59 25 mg
DAILY NIDIA Administration
Psyllium Hydrophilic Mucilloid 1 packet 11/29/23 20:00 11/30/23 10:01
Psyllium Packet PO 12/27/23 19:59 1 packet
BID NIDIA Administration
Sodium Chloride 0 flush 11/28/23 23:00
Sodium Chloride 0.9% (Flush) Syringe IV 12/26/23 22:59
PER PROTOCOL NIDIA
[2023-11-30 11:33] LABS: Troponin I 0.022 ng/ml
--- NOTE | 2023-11-30 11:44 | W.PN.UPDATE ---
Update Note
Progress Note Update
EKG noted.
Await troponin
Spoke to Dr. Denny who is patient's primary physician. She stated that she has noticed a significant decline in patient's cognitive dysfunction and she has alerted the family especially son Paresh. Because of the patient's cognitive dysfunction
she always calls saira Yoder during the office visits as she did sean rosen Beena has been her patient for the past 10 years.
[2023-11-30] MEDS: ROCEPHIN 1000 MG IV (12:03)
[2023-11-30] MEDS: STERILE WATER FOR INJECTION 10 ML IV (12:04)
[2023-11-30 12:45] LABS: Glucose - Point of Care 164 mg/dl (70-99)
[2023-11-30 15:28] LABS: Troponin I 0.014 ng/ml
[2023-11-30 17:03] LABS: Glucose - Point of Care 115 mg/dl (70-99)
[2023-11-30] MEDS: GLUCOPHAGE 1000 MG PO (17:20)
[2023-11-30] MEDS: LIPITOR 10 MG PO (17:20)
[2023-11-30] MEDS: METAMUCIL, KONSYL PO (21:17)
[2023-11-30 21:36] LABS: Glucose - Point of Care 123 mg/dl (70-99)
[2023-12-01 07:28] VITALS: BP 139/83; BP 156/71; BP 156/78; PULSE 65; PULSE 76; PULSE 91
[2023-12-01 08:47] LABS: Glucose - Point of Care 116 mg/dl (70-99)
[2023-12-01] MEDS: NOVOLOG FLEXPEN-LOW RESISTANCE SC ×2 (09:49→13:34)
[2023-12-01] MEDS: GLUCOPHAGE 500 MG PO (10:11)
[2023-12-01] MEDS: COZAAR 50 MG PO (10:12)
[2023-12-01] MEDS: TOPROL XL 25 MG PO (10:12)
[2023-12-01] MEDS: PLAVIX 75 MG PO (10:12)
[2023-12-01] MEDS: MAGNESIUM OXIDE 250 MG PO (10:12)
[2023-12-01] MEDS: METAMUCIL, KONSYL PO ×2 (10:13→10:22)
[2023-12-01] MEDS: VITAMIN D3 (cholecalciferol) 50 MCG PO (10:14)
--- NOTE | 2023-12-01 10:14 | W.PN.HOSP.TC ---
Addendum entered and electronically signed by Meño Lea MD 12/01/23 15:30:
Sutures removed. No bleeding noted.
Discussed with patient's son and patient's at bedside.
Addendum entered and electronically signed by Meño Lea MD 12/01/23 14:57:
got back to me. OK to take sutures out.
Addendum entered and electronically signed by Meño Lea MD 12/01/23 14:49:
[place] texted and also called answering service and left a message .
Pt and family anxious to leave.
They will call dermatology office tomorrow
Therefore be discharged.
Total discharge coordination time 36 minutes
Original Note:
Today's Communication/Plan
-
Stop AB
UTI ruled out
Texted
Family does not want patient to go to rehab-discussed yesterday with the son regarding risks of fall.
Family is going to be staying with the patient upon discharge. They are eventually planning to move to [place].
Will discharge today
Assessment / Plan
Assessment / Plan
83-year-old man presented with syncope. 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 He seemed to have gotten to the house and taken a nap. found him later. He stated that he did put
the mail on the kitchen table.
Right forehead-sutures from dermatological surgery
Abrasion on the face just above the upper lip on the right side
Cardiovascular system S1-S2 appreciated
Chest clear to auscultation
Abdomen soft and nontender
Neuro exam is nonfocal, answers questions appropriately
# TME resolved- Pt pleasant and conversant
# Abnormal urine analysis. With TME will treat as a UTI with ceftriaxone. Await urine cultures
#Syncope with fall
Memory impairment with this event
Neurology evaluation appreciated
Trop negative
Echo 11/29/2023-elevated normal size and function. Ejection fraction 60 to 65% stage II diastolic dysfunction. RV normal, aortic valve replacement, mild TR
PT OT
# H/O CVA
# Paroxysmal atrial fibrillation/flutter-not on anticoagulation as outpatient. On beta-blockers.
Follows up with Dr. Asif Pablo at [facility]. I spoke to his MACHINE SETTER . Patient has very low burden of atrial fibrillation with his age and risk of bleeding he was taken off of anticoagulation.
# Hyperlipidemia-continue atorvastatin
# Coronary disease with cardiac stents and bypass surgery-reportedly cardiology had the patient on aspirin in September but as per neurology he was switched to Plavix from my discussion with [facility].
# Hypertension-on losartan 50 mg and metoprolol 25 mg daily as outpatient
# History of aortic valve replacement
# Diabetes-type II
On metformin as outpatient-continue 500 mg daily and 1000 mg at bedtime
Sliding scale coverage and Accu-Cheks
# History of skin cancer with excision 5 days prior to arrival
Follow-up with dermatology after discharge
Patient asked me to remove sutures he does not care how the wound looks because 'I am almost 84'.
I have texted Dr. Francisco and waiting for response back
# History of TURP for prostate cancer
# Nephrolithiasis
# DVT prophylaxis-SCDs
# Full code
Discussed with nursing at bedside
Spoke to Dr. Asif Pablo's MACHINE SETTER ([facility]) (11/29/23)
D/W Dr.Elisa Denny. (11/30/23)
Anticipated Discharge: Today
Subjective/Interval History
-
Date of Service: December 01, 2023
Objective Data
-
Vital Signs:
Vital Signs
Temp Pulse Resp BP Pulse Ox
98.6 F 65 18 156/71 96
12/01/23 07:28 12/01/23 07:28 12/01/23 07:28 12/01/23 07:28 12/01/23 07:28
I&O
11/30/23 12/01/23 12/02/23
06:59 06:59 06:59
Intake Total 1810 / 1810 1320 / 1320
Output Total 400 / 400
Balance 1410 / 1410 1320 / 1320
[2023-12-01 12:51] LABS: Glucose - Point of Care 166 mg/dl (70-99)
--- NOTE | 2023-12-01 13:35 | PTCARENOTE ---
Pt refused 1 unit of Insulin stating ' I don't use Insulin at home and Im not going to change my regime while Im in here'.
--- NOTE | 2023-12-01 14:49 | CM ---
Addendum entered by Lorena Morelos 12/01/23 14:50:
family transport home.
Original Note:
CM following re: d/c planning.
CM met with pt and family at bedside.
Pt for d/c today.
We discussed VN, they agreed.
Ref sent to [facility] as requested.
--- NOTE | 2023-12-01 14:53 | W.DS.TRANS ---
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
-
Discharge Instructions:
Discharge Diagnosis/Procedures Syncope with fall, Cervical spine degenerative
changes, history of Stroke, dementia,
hyperlipidemia, history of coronary artery
disease, hypertension, history of aortic valve
replacement, diabetes, history of prostate
cancer
Diet Diabetic, Carb Controlled
Activity As tolerated,With assistance
Driving Restrictions No driving
Other Services VN,PT,OT
Instructions:
Stand-Alone Forms:
Changes to Home Medications: No
Discharge Medications:
DC Medications w/original date entered in [facility]
atorvastatin 10 mg tablet 10 mg PO QPM High Cholesterol 05/03/09
omega-3 fatty acids-fish oil 300 mg-500 mg capsule (Fish Oil) 1 cap PO DAILY Supplement 05/03/09
losartan 50 mg tablet 50 mg PO DAILY Blood Pressure 10/25/13
ascorbic acid (vitamin C) 500 mg tablet (Vitamin C) 500 mg PO DAILY Supplement 11/28/23
cholecalciferol (vitamin D3) 50 mcg (2,000 unit) capsule (Vitamin D3) 50 mcg PO DAILY Supplement 11/28/23
magnesium oxide 250 mg PO DAILY Electrolyte Repletion 11/28/23
metformin 1,000 mg tablet 1,000 mg PO QPM Diabetes 11/28/23
metformin 500 mg tablet 500 mg PO DAILY Diabetes 11/28/23
metoprolol succinate 25 mg tablet,extended release 24 hr 25 mg PO DAILY Blood Pressure 11/28/23
psyllium 1 packet PO BID Constipation 11/28/23
vitamin B complex 1 tab PO DAILY Supplement 11/28/23
clopidogrel 75 mg tablet 75 mg PO DAILY Blood clot prevention/tx #0 tabs 12/01/23
Home Medication Changes
Pending Results: No
[2023-12-01 15:00] VITALS: BP 150/72
== END 2023-12-01 15:30 | disposition home health service (06) | DRG 312 ==
LOC: 3 WEST ACU 15:01
PROVIDERS: Nurse Practitioner Gerontology; ADMITTING PHYSICIAN Hospitalist; ATTENDING PHYSICIAN Hospitalist; CONSULT PHYSICIAN Psychiatry & Neurology Neurology; EMERGENCY PHYSICIAN Student in an Organized Health Care Education/Training Program; FAMILY PHYSICIAN Internal Medicine
DX: I95.1 Orthostatic hypotension (principal); G92.8 Other toxic encephalopathy; I48.92 Unspecified atrial flutter; F03.911 Unspecified dementia, unspecified severity, with agitation; I25.10 Atherosclerotic heart disease of native coronary artery without angina pectoris; E78.5 Hyperlipidemia, unspecified; E87.5 Hyperkalemia; E83.52 Hypercalcemia; I10 Essential (primary) hypertension; E11.9 Type 2 diabetes mellitus without complications; C44.319 Basal cell carcinoma of skin of other parts of face; I48.0 Paroxysmal atrial fibrillation; E86.1 Hypovolemia; M50.322 Other cervical disc degeneration at C5-C6 level; S00.81XA Abrasion of other part of head, initial encounter; W18.39XA Other fall on same level, initial encounter; Z95.1 Presence of aortocoronary bypass graft; Z86.73 Personal history of transient ischemic attack (TIA), and cerebral infarction without residual deficits; Z95.2 Presence of prosthetic heart valve; Z79.84 Long term (current) use of oral hypoglycemic drugs; Z98.890 Other specified postprocedural states; Z85.46 Personal history of malignant neoplasm of prostate; Z78.1 Physical restraint status; Z95.5 Presence of coronary angioplasty implant and graft; Z87.891 Personal history of nicotine dependence; Z88.5 Allergy status to narcotic agent
CPT/HCPCS: 70450; 71045; 72125; 80048; 80053; 81003; 81015; 82607; 82962; 84443; 84484; 85025; 85027; 87086; 93005; 93306; 97116; 97162; 97167; 99285; J2358